=== PATIENT | female | born 1995 | race Caucasian/White ===

== ENCOUNTER 2017-07-09 19:45 | Emergency (ER) | END 2017-07-09 22:50 | disposition home or self-care (01) | DX: B27.90 Infectious mononucleosis, unspecified without complication (principal) | CPT/HCPCS: 80048; 81001; 82550; 85025; 86308; 87880; 96374; J1885; J7030; Z7502; Z7610 ==

== ENCOUNTER 2017-09-18 15:33 | Emergency (ER) | payer OTHER ==
[~2017-09-18] VITALS: Ht 157.5 cm; Wt 72.0 kg
[~2017-09-18 15:33] MED LIST: ACET500C5 PO; IBUP-1542 PO
[2017-09-18 15:36] VITALS: Ht 157.5 cm; Wt 72.0 kg
[2017-09-18 18:45] LABS: URINE BLOOD (Dip) POC Negative (NEGATIVE)
[2017-09-18] MEDS ORDERED: IBUPROFEN 600 MG TAB PO ONE (19:00)
--- NOTE | 2017-09-18 20:23 | RADRPT ---
PROCEDURE: US Pelvis. CLINICAL INDICATION: Pelvic pain. Last menstrual period 07/24/2017 - the patient has irregular per iods TECHNIQUE: Multiple sonographic images of the pelvis were obtained utilizing a transabdominal francis hnique. The images were reviewed on a PACS workstation. COMPARISON: None. FINDINGS: The uterus measures 5.9 x 3.5 x 5.2 cm and is unremarkable. The thickness of the endometrium equals 1 cm. The right ovary measures 3.2 x 2.1 x 2.5 cm and is unremarkable. The left ovary measures 2.8 x 2.1 x 2.3 cm and is unremarkable. Color flow and spectral analysis demonstrates normal arterial a nd venous flow in both ovaries. No adnexal mass or free intrapelvic fluid is seen. IMPRESSION: No abnormality seen. Please see above. RPTAT: HJES .Nick Wild MD, Date Time Electronically viewed and signed by .Nick Wild MD, on 09/18/2017 20:23 .S/
[2017-09-18] MEDS ORDERED: IBUP-1542 PO (20:30)
--- NOTE | 2017-09-18 20:38 | ERD ---
ER Documentation Chief Complaint Chief Complaint pelvic pain x 2 weeks HPI This is a 22-year-old female presents to the ER with pelvic pain over the last 2 weeks. Patient states that pelvic pain is right-sided. Patient states that she went to [facility] and was told she had an ovarian cyst, pain has been intermittent since then. Patient denies any urinary frequency or dysuria. She denies any vaginal discharge. Is currently sexually active and uses condoms. Her last normal menstrual period was July 24, 2017, her periods are very regular. Patient had an appendectomy when she was 6 years old. She denies any fevers or chills. ROS 12 point review of systems was done, all negative except per HPI. Medications Home Meds Active Scripts Ibuprofen* (Motrin*) 600 Mg Tab, 600 MG PO Q6, #30 TAB Prov:DANIEL HARVEY 09/18/17 Acetaminophen* (Tylophen*) 500 Mg Capsule, 1 CAP PO Q6H Y for PAIN AND OR ELEVATED TEMP, #20 CAP Prov:STEPHANI PATTERSON PA-C 07/09/17 Ibuprofen* (Motrin*) 600 Mg Tab, 600 MG PO Q6, #30 TAB Prov:STEPHANI PATTERSON PA-C 07/09/17 Allergies Allergies: Coded Allergies: No Known Allergy (Unverified , 07/09/17) PMhx/Soc History of Surgery: Yes (hernia repair, appendectomy) Anesthesia Reaction: No Hx Neurological Disorder: No Hx Respiratory Disorders: No Hx Cardiac Disorders: No Hx Psychiatric Problems: No Hx Miscellaneous Medical Probl: No Hx Alcohol Use: No Hx Substance Use: No Hx Tobacco Use: No Smoking Status: Never smoker Physical Exam Vitals Vital Signs Date Time Temp Pulse Resp B/P Pulse Ox O2 Delivery O2 Flow Rate FiO2 09/18/17 15:36 99.6 76 18 116/65 98 Physical Exam GENERAL: The patient is well developed and appropriate for usual state of health , in no apparent distress. HEENT: Atraumatic cervical lymphadenopathy. CHEST: Clear to auscultation bilaterally. There are no rales, wheezes or rhonchi. HEART: Regular rate and rhythm. No murmurs, clicks, rubs or gallops. ABDOMEN: Soft, nontender and nondistended. Good bowel sounds. No rebound or guarding. No gross peritonitis. No gross organomegaly or masses. No Francis sign or McBurney point tenderness. ttp in the right pelvic area BACK: No midline or flank tenderness. SKIN: There is no apparent rash or petechia. The skin is warm and dry. Results 24 hrs Laboratory Tests Test 09/18/17 18:47 Bedside Urine pH (LAB) 5.5 Bedside Urine Protein (LAB) Negative Bedside Urine Glucose (UA) Negative Bedside Urine Ketones (LAB) Negative Bedside Urine Blood Negative Bedside Urine Nitrite (LAB) Negative Bedside Urine Leukocyte Esterase (L Negative Current Medications Medications (Trade) Dose Ordered Sig/Caro Route PRN Reason Start Time Stop Time Status Last Admin Dose Admin Ibuprofen (Motrin) 600 mg ONCE ONCE PO 09/18/17 19:00 09/18/17 19:01 DC 09/18/17 18:46 Procedures/MDM Differential diagnosis includes but is not limited to appendicitis, hernia, UTI , constipation, ectopic , ovarian torsion, PID, Mittelschmerz, fibroid. This is a 22-year-old female presents to the ER with right-sided pelvic pain, at this time her ultrasound is normal there is no evidence of urinary tract infection or of . Patient will be sent home with ibuprofen for pain. She is stable for outpatient follow-up, she is afebrile and extremely well-appearing and her pain was controlled in the ER with ibuprofen. Patient is to follow-up with her PCP within 1-2 days or return to ER sooner if symptoms worsen. My medical decision making shared with the patient she understands and agrees with plan. Departure Diagnosis: Primary Impression: Pelvic pain Condition: Stable Patient Instructions: Pelvic Pain, Unknown Cause Additional Instructions: Call your primary care doctor TOMORROW for an appointment during the next 1-2 days.See the doctor sooner or return here if your condition worsens before your appointment time. NO CYSTS ARE SEEN ON ULTRASOUND! DANIEL HARVEY Sep 18, 2017 20:38
[2017-09-18 21:00] VITALS: BP 124/83; PULSE 64; RESP 18
== END 2017-09-18 21:00 | disposition home or self-care (01) ==
LOC: FTE 15:33
DX: R10.2 Pelvic and perineal pain (principal)
CPT/HCPCS: 76856; 81003; Z7502; Z7610

== ENCOUNTER 2017-12-02 21:04 | Emergency (ER) | END 2017-12-03 02:28 | disposition home or self-care (01) ==

== ENCOUNTER 2018-11-08 19:41 | Emergency (ER) | END 2018-11-08 23:33 | disposition home or self-care (01) ==

== ENCOUNTER 2019-04-14 09:39 | Emergency (ER) | payer MEDICAID ==
[~2019-04-14] VITALS: Ht 157.5 cm; Wt 69.9 kg
[~2019-04-14 09:39] MED LIST changes: +CEPH-443 PO; +HYDR-4011 PO; +ONDA4TAB14 PO
[2019-04-14 10:14] VITALS: BP 119/71; PULSE 93; RESP 20; Ht 157.5 cm; Wt 69.9 kg
[2019-04-14] MEDS ORDERED: CALC300T4 PO (10:40)
--- NOTE | 2019-04-14 11:50 | ERD ---
ER Documentation Chief Complaint Chief Complaint c/o abdominal pain after ingesting milk. to go to OB when cleared HPI 24 yr old female complaining of epigastric pain x 1 day. Patient ingested sour cream and developed epigastric pain immendiately after. No vomiting. Patient ingested some garlic after which did not alleviate her symptoms. Denies diarrhea. Patient is 37 weeks and denies any abdominal cramping or vaginal discharge. Denies complications with . Denies other medical problems. NKDA. Surgical history intussusception is a 6-year-old. Social history denies ROS All systems reviewed and are negative except as per history of present illness. Medications Home Meds Active Scripts Calcium Carbonate* (Tums X-Str) 300 Mg Tab.chew, 300 MG PO TID, #30 TAB.CHEW Prov:LEOPOLDO MEDINA PA-C 04/14/19 Cephalexin* (Keflex*) 500 Mg Capsule, 500 MG PO QID for 7 Days, CAP Prov:ROMEO VAZQUEZ PA-C 11/08/18 Acetaminophen* (Tylophen*) 500 Mg Capsule, 1 CAP PO Q6H PRN for PAIN AND OR ELEVATED TEMP, #20 CAP Prov:ROMEO VAZQUEZ PA-C 11/08/18 Ondansetron (Ondansetron Odt) 4 Mg Tab.rapdis, 4 MG PO Q6H PRN for NAUSEA AND/OR VOMITING, #20 TAB Prov:SUNG JIANG NP 12/03/17 Ibuprofen* (Motrin*) 600 Mg Tab, 600 MG PO Q6H PRN for PAIN AND OR ELEVATED TEMP, #30 TAB Prov:SUNG JIANG NP 12/03/17 Hydrocodone/Acetaminophen ([place] 5-325 Tablet) 1 Each Tablet, 1 TAB PO Q6H PRN for PAIN, #20 TAB Prov:SUNG JIANG NP 12/03/17 Ibuprofen* (Motrin*) 600 Mg Tab, 600 MG PO Q6, #30 TAB Prov:DANIEL HARVEY 09/18/17 Acetaminophen* (Tylophen*) 500 Mg Capsule, 1 CAP PO Q6H PRN for PAIN AND OR ELEVATED TEMP, #20 CAP Prov:STEPHANI PATTERSON PA-C 07/09/17 Ibuprofen* (Motrin*) 600 Mg Tab, 600 MG PO Q6, #30 TAB Prov:STEPHANI PATTERSON PA-C 07/09/17 Allergies Allergies: Coded Allergies: No Known Allergy (Unverified , 07/09/17) PMhx/Soc History of Surgery: Yes (hernia repair, appendectomy) Anesthesia Reaction: No Hx Neurological Disorder: No Hx Respiratory Disorders: No Hx Cardiac Disorders: No Hx Psychiatric Problems: No Hx Miscellaneous Medical Probl: No Hx Alcohol Use: No Hx Substance Use: No Hx Tobacco Use: No FmHx Family History: No diabetes, No coronary disease, No other Physical Exam Vitals Vital Signs Date Temp Pulse Resp B/P (MAP) Pulse Ox O2 O2 Flow FiO2 Time Delivery Rate 04/14/19 98.4 93 20 119/71 99 10:14 (87) Physical Exam GENERAL: The patient is well-appearing, well-nourished, in no acute distress HEENT: Atraumatic. Conjunctivae are pink. Pupils equal, round, and reactive to light. There is no scleral icterus. Tympanic membranes clear bilaterally. Oropharynx clear. NECK: C-spine is soft and supple. There is no meningismus. There is no cervical lymphadenopathy. CHEST: Clear to auscultation bilaterally. There are no rales, wheezes or rhonchi. HEART: Regular rate and rhythm. No murmurs, clicks, rubs or gallops. ABDOMEN:Soft, nontender and nondistended. Good bowel sounds. No rebound or guarding. No gross peritonitis. No gross organomegaly or masses. Procedures/MDM MDM: 24-year-old female presenting with abdominal pain after ingesting sour cream. Patient's exam is non-concerning vitals are stable. Patient has not had vomiting. Patient has had normal bowel movements. Patient will be discharged with supportive medications. Recommend patient to follow-up with primary care. All questions answered at discharge Departure Diagnosis: Primary Impression: Abdominal pain Condition: Stable Patient Instructions: Abdominal Pain Referrals: COMMUNITY CLIN[facility] YOU HAVE RECEIVED A MEDICAL SCREENING EXAM AND THE RESULTS INDICATE THAT YOU DO NOT HAVE A CONDITION THAT REQUIRES URGENT TREATMENT IN THE EMERGENCY DEPARTMENT. FURTHER EVALUATION AND TREATMENT OF YOUR CONDITION CAN WAIT UNTIL YOU ARE SEEN IN YOUR DOCTORS OFFICE WITHIN THE NEXT 1-2 DAYS. IT IS YOUR RESPONSIBILITY TO MAKE AN APPOINTMENT FOR FOLOW-UP CARE. IF YOU HAVE A PRIMARY DOCTOR --you should call your primary doctor and schedule an appointment IF YOU DO NOT HAVE A PRIMARY DOCTOR YOU CAN CALL OUR PHYSICIAN REFERRAL HOTLINE AT IF YOU CAN NOT AFFORD TO SEE A PHYSICIAN YOU CAN CHOSE FROM THE FOLLOWING [facility] [address] [facility] [address] [facility] [facility] [address] [facility] [address] [facility] [facility] [address] [facility] [facility] [address] Additional Instructions: FOLLOW UP WITH YOUR PRIMARY CARE PHYSICIAN TOMORROW.Return to this facility if you are not improving as expected. LEOPOLDO MEDINA PA-C April 14, 2019 11:50
[2019-04-14] MEDS ORDERED: PREN-99 PO (12:45)
== END 2019-04-14 10:51 | disposition home or self-care (01) ==
LOC: FTE 09:39
DX: R10.13 Epigastric pain (principal)
CPT/HCPCS: 99282

== ENCOUNTER 2019-04-14 11:29 | Outpatient (CLI) | payer MEDICAID ==
[~2019-04-14] VITALS: Ht 157.5 cm; Wt 69.9 kg
[~2019-04-14 11:29] MED LIST changes: +CALC300T4 PO
[2019-04-14 11:45] VITALS: BP 108/72; PULSE 78; RESP 18; Ht 157.5 cm; Wt 69.9 kg
[2019-04-14] MEDS ORDERED: PREN-99 PO (12:45)
--- NOTE | 2019-04-14 12:54 | TRIAGE ---
OB Triage Datetime Report Generated by CPN: 04/14/2019 12:53 Datetime: 04/14/2019 12:32 Labor Evaluation Frequency: x3 Monitor Mode: External Duration (sec)2399: 50-70 Quality: Mild Resting Tone [place]: Relaxed Heart Rate FHR Baseline Rate: 140 Monitor Mode: External US FHR Baseline Changes: No Baseline Change Variability: Moderate 6-25 bpm Accelerations: 15X15 Decelerations: None Category: Category I Datetime: 04/14/2019 11:53 Stage of : OB Triage Assessment Type: Triage Maternal Assessment Level of Consciousness: Fully Conscious DTR's/Clonus: DTRs 2+; No Clonus Headache: Denies Blurred Vision: No Respiratory Effort: Unlabored; Regular Rhythm; Equal Expansion Breath Sounds, Left: Clear and Equal Breath Sounds, Right: Clear and Equal Nausea/Vomiting: Denies RUQ Epigastric Pain: Denies Lower Extremities Edema: None Degree: None Upper Extremities Edema: None Degree: None Facial Edema: None Temperature Route: Oral Fall Risk Assessment History of Falling: (0) No Secondary Diagnosis: (0) No Ambulatory Aid: (0) Bedrest/Nurse Assist IV Therapy: (0) No Gait: (0) Normal/Bedrest/Immobile Mental Status: (0) Oriented to Own Ability Fall Score: 0 Fall Risk Score Definition: No Risk: No action required Labor Evaluation Frequency: x1 Monitor Mode: External Duration (sec)2399: 80 Quality: Mild Resting Tone [place]: Relaxed Heart Rate FHR Baseline Rate: 140 Monitor Mode: External US FHR Baseline Changes: No Baseline Change Variability: Moderate 6-25 bpm Accelerations: 15X15 Decelerations: None Category: Category I Pain Assessment Pain Scale: 0 Pain Presence: None/Denies Pain Type: N/A Datetime: 04/14/2019 11:50 Time of Arrival: 04/14/2019 11:17 EGA: 36.6 Arrived By: Ambulatory Arrived From: Home Chief Complaint: heartburn Movement: Present Contractions: Denies/Absent Rupture of Membranes: Denies Vaginal Bleeding: None Vaginal Discharge: Denies Recent Sexual Intercouse: Denies Abdominal Trauma: Not Applicable Patient Complaints: None Time Provider Notified: 04/14/2019 12:30 Provider Notified: Dr Luque Initial Plan: KIARA BARROW
--- NOTE | 2019-05-02 17:06 | PN ---
Triage Information Date/Time Reason for visit: Heartburn heartburn Weeks of Gestation 36 weeks and 6 days /Para G1 Diabetes: none Hypertention: none Objective Heart Rate: 130's Contractions: None Disposition: Discharge Assessment/Plan 24 years old 1 with single intrauterine at 36 weeks and 6 days complaining of heartburn.She states good movement. She denies nausea, vomiting, shortness of breath, chest pain, headache, visual changes, vaginal bleeding or LOF. -FHR: No sign of metabolic acidosis- Category I -Contractions: None -GI cocktail given. Recommend using Tums, Pepcid, direction given -Ultrasound performed: Normal ROCIO, BPP 8 out of 8* -Symptoms and sign of labor, preeclampsia, kick count discussed w ith patient, she voiced understanding. All of her questions answered. -Patient was discharged home in stable condition with the appropriate discharge instructions provided. I would like patient to have close follow-up with her primary physician or outpatient clinic in 1-2 days or return to triage for worsening symptoms or any other urgent concerns. BRANDON AVELAR May 02, 2019 17:06
== END 2019-04-14 12:53 | disposition home or self-care (01) ==
LOC: OBT 11:29 → L-D 11:31 → OBT 12:53
PROVIDERS: ATTEND Obstetrics & Gynecology
DX: O26.893 Other specified pregnancy related conditions, third trimester (principal); R12 Heartburn; Z3A.36 36 weeks gestation of pregnancy
CPT/HCPCS: 76818; Z7500; G0463